=== PATIENT | female | born 1980 | race African-American/Black ===

== ENCOUNTER 2017-09-27 11:16 | Emergency (ER) | payer OTHER ==
--- NOTE | 2017-09-27 11:47 | EDPHYS ---
Physician Documentation [facility] Name: Olivia Miles Age: 37 yrs Sex: Female : 1980 Arrival Date: 09/27/2017 Time: 11:18 Bed 12 Private MD: Storm José T ED Physician Johny Chun HPI: 09/27 11:25 This 37 yrs old Black Female presents to ER via Unassigned with complaints of Sore kav Throat. 11:38 This 37 yrs old Black Female presents to ER via Ambulatory with complaints of Sore kav Throat. 11:40 The patient presents with broken tooth/teeth. The problem is located in the lower right kav first molar. Onset: The symptoms/episode began/occurred acutely. Duration: The symptoms are intermittent, with no pattern. Modifying factors: The symptoms are alleviated by over the counter medications, Tylenol, the symptoms are aggravated by chewing. Associated signs and symptoms: Pertinent positives: pain. Severity of symptoms: At their worst the symptoms were mild, just prior to arrival. The patient has experienced a previous episode, approximately 1 months ago. The patient has not recently seen a physician. Patient reports dental pain > 1 month but, has "...not been to see her dentist".. 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 - Social history:: Smoking status: Patient/guardian denies using tobacco. - Ebola Screening: : Patient negative for fever greater than or equal to 101.5 degrees Fahrenheit, and additional compatible Ebola Virus Disease symptoms Patient denies exposure to infectious person Patient denies travel to an Ebola-affected area in the 21 days before illness onset No symptoms or risks identified at this time. - Family history:: not pertinent. - Hospitalizations: : No recent hospitalization is reported. ROS: 11:43 Constitutional: Negative for fever, chills, and weight loss, Eyes: Negative for injury, kav pain, redness, and discharge, Neck: Negative for injury, pain, and swelling, Cardiovascular: Negative for chest pain, palpitations, and edema, Respiratory: Negative for shortness of breath, cough, wheezing, and pleuritic chest pain, Abdomen/GI: Negative for abdominal pain, nausea, vomiting, diarrhea, and constipation, Back: Negative for injury and pain, : Negative for injury, bleeding, discharge, and swelling, MS/Extremity: Negative for injury and deformity, Skin: Negative for injury, rash, and discoloration, Neuro: Negative for headache, weakness, numbness, tingling, and seizure, Psych: Negative for depression, anxiety, suicide ideation, homicidal ideation, and hallucinations, Allergy/Immunology: Negative for hives, rash, and allergies, Endocrine: Negative for neck swelling, polydipsia, polyuria, polyphagia, and marked weight changes, Hematologic/Lymphatic: Negative for swollen nodes, abnormal bleeding, and unusual bruising. 11:43 ENT: Positive for dental pain, ear pain. Exam: 11:43 Constitutional: This is a well developed, well nourished patient who is awake, alert, kav and in no acute distress. Head/Face: Normocephalic, atraumatic. Eyes: Pupils equal round and reactive to light, extra-ocular motions intact. Lids and lashes normal. Conjunctiva and sclera are non-icteric and not injected. Cornea within normal limits. Periorbital areas with no swelling, redness, or edema. Neck: Trachea midline, no thyromegaly or masses palpated, and no cervical lymphadenopathy. Supple, full range of motion without nuchal rigidity, or vertebral point tenderness. No Meningismus. Chest/axilla: Normal chest wall appearance and motion. Nontender with no deformity. No lesions are appreciated. Cardiovascular: Regular rate and rhythm with a normal S1 and S2. No gallops, murmurs, or rubs. Normal PMI, no JVD. No pulse deficits. Respiratory: Lungs have equal breath sounds bilaterally, clear to auscultation and percussion. No rales, rhonchi or wheezes noted. No increased work of breathing, no retractions or nasal flaring. Abdomen/GI: Soft, non-tender, with normal bowel sounds. No distension or tympany. No guarding or rebound. No evidence of tenderness throughout. Back: No spinal tenderness. No costovertebral tenderness. Full range of motion. Skin: Warm, dry with normal turgor. Normal color with no rashes, no lesions, and no evidence of cellulitis. MS/ Extremity: Pulses equal, no cyanosis. Neurovascular intact. Full, normal range of motion. Neuro: Awake and alert, GCS 15, oriented to person, place, time, and situation. Cranial nerves II-XII grossly intact. Motor strength 5/5 in all extremities. Sensory grossly intact. Cerebellar exam normal. Normal gait. Psych: Awake, alert, with orientation to person, place and time. Behavior, mood, and affect are within normal limits. 11:43 ENT: External ear(s): are unremarkable, no acute changes, Ear canal(s): are normal, no acute changes, TM's: are normal, no acute changes, Dental exam: fractured teeth are noted, specifically the lower right first molar. Vital Signs: 11:33 BP 112 / 75; Pulse 68; Resp 16; Temp 98.2; Pulse Ox 98% on R/A; Weight 87.54 kg; Height iw 5 ft. 5 in. (165.10 cm); Pain 7/10; 11:33 Body Mass Index 32.12 (87.54 kg, 165.10 cm) iw MDM: 11:32 Medical screening is not applicable. kav 11:43 Differential diagnosis: dental caries, dental abscess. Data reviewed: vital signs, kav nurses notes. Administered Medications: No medications were administered Disposition: 09/27/17 11:47 Discharged to Home. Impression: Fracture of Molar, Chronic Dental Pain . - Condition is Stable. - Prescriptions for Zithromax Z- Jamie 250 mg Oral Tablet - take 1 tablet by ORAL route as directed for 5 days Day 1 - take two (2) tablets one time. Day 2, 3, 4 , 5 take one (1) tablet once daily.; 6 tablet. - Medication Reconciliation Form, Thank You Letter, Antibiotic Education form. - Follow up: Storm José MD; When: 1 - 2 days; Reason: Recheck today's complaints, Continuance of care, Re-evaluation by your physician. Follow up: Timoteo Cyr DDS; When: 1 - 2 days; Reason: Recheck today's complaints, Continuance of care, Re-evaluation by your physician. - Problem is new. - Symptoms are unchanged. - Notes: over the counter tylenol/motrin for dental pain as needed and as directed Addendum: 09/29/2017 08:03 Co-signature as Attending Physician, Johny Chun MD I agree with the assessment and w a plan of care. Signatures: Makeda Berry FNP FNP kav Williams, Irene, RN RN iw [place], MD MD poncho Mcclain Corrections: (The following items were deleted from the chart) 09/27 12:10 11:47 09/27/2017 11:47 Discharged to Home. Impression: Fracture of Molar; Chronic iw Dental Pain . Condition is Stable. Forms are Medication Reconciliation Form, Thank You Letter, Antibiotic Education, Prescription Opioid Use. Follow up: Storm José; When: 1 - 2 days; Reason: Recheck today's complaints, Continuance of care, Re-evaluation by your physician. Follow up: Timoteo Cyr; When: 1 - 2 days; Reason: Recheck today's complaints, Continuance of care, Re-evaluation by your physician. Problem is new. Symptoms are unchanged. kav
--- NOTE | 2017-09-27 11:47 | ER ---
Nurse's Notes [facility] Name: Olivia Miles Age: 37 yrs Sex: Female : 1980 Arrival Date: 09/27/2017 Time: 11:18 Bed 12 Private MD: Storm José T Diagnosis: Fracture of Molar;Chronic Dental Pain Presentation: 09/27 11:28 Presenting complaint: Patient states: pt c/o pain to right side of throat X 1 month, iw pain radiates to chin and right ear and behind right eye, productive cough. Transition of care: patient was not received from another setting of care. Onset of symptoms was August 27, 2017. Risk Assessment: Do you want to hurt yourself or someone else? Patient reports no desire to harm self or others. Initial Sepsis Screen: Does the patient meet any 2 criteria? No. Patient's initial sepsis screen is negative. Does the patient have a suspected source of infection? No. Patient's initial sepsis screen is negative. Care prior to arrival: None. 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 - Social history:: Smoking status: Patient/guardian denies using tobacco. - Ebola Screening: : Patient negative for fever greater than or equal to 101.5 degrees Fahrenheit, and additional compatible Ebola Virus Disease symptoms Patient denies exposure to infectious person Patient denies travel to an Ebola-affected area in the 21 days before illness onset No symptoms or risks identified at this time. - Family history:: not pertinent. - Hospitalizations: : No recent hospitalization is reported. Screenin:51 Abuse screen: Denies threats or abuse. Denies injuries from another. Nutritional iw screening: No deficits noted. Tuberculosis screening: No symptoms or risk factors identified. 12:09 Fall Risk None identified. iw Assessment: 11:40 General: Appears in no apparent distress. Behavior is calm, cooperative. Pain: iw Complains of pain in mouth and lower right first molar. Neuro: Level of Consciousness is awake, alert, obeys commands, Oriented to person, place, time, situation, Moves all extremities. Respiratory: Airway is patent Respiratory effort is even, unlabored, Breath sounds are clear bilaterally. EENT: Throat is reddened. Musculoskeletal: Range of motion: intact in all extremities. Vital Signs: 11:33 BP 112 / 75; Pulse 68; Resp 16; Temp 98.2; Pulse Ox 98% on R/A; Weight 87.54 kg; Height iw 5 ft. 5 in. (165.10 cm); Pain 7/10; 11:33 Body Mass Index 32.12 (87.54 kg, 165.10 cm) iw ED Course: 11:18 Patient arrived in ED. mr 11:19 Storm José MD is Private Physician. mr 11:24 [facility]akeda Berry [facility] kav 11:24 Johny Chun MD is Attending Physician. kav 11:31 Triage completed. iw 11:34 Arm band placed on. iw 11:40 No provider procedures requiring assistance completed. Patient did not have IV access iw during this emergency room visit. 11:45 Storm José MD is Referral Physician. kav 11:45 Timoteo Cyr DDS is Referral Physician. kav 11:50 Patient has correct armband on for positive identification. iw 12:06 Tamara Frye, RN is Primary Nurse. iw Administered Medications: No medications were administered Outcome: 11:47 Discharge ordered by . kav 12:09 Condition: good iw 12:09 Discharge instructions given to patient, Instructed on discharge instructions, follow up and referral plans. 12:09 Discharged to home iw 12:10 Patient left the ED. iw Signatures: Makeda Berry FNP DAY GUARDIsidra Rosario Tamara Frye, RN RN iw
[2017-09-27 12:15] VITALS: BP 112/75; TEMP 98.2; O2SAT 98
== END 2017-09-27 12:10 | disposition home or self-care (01) ==
LOC: ER 11:16
DX: S02.5XXA Fracture of tooth (traumatic), initial encounter for closed fracture (principal); X58.XXXA Exposure to other specified factors, initial encounter; Y93.9 Activity, unspecified; Y92.9 Unspecified place or not applicable; Z88.0 Allergy status to penicillin
CPT/HCPCS: 99281